=== PATIENT | female | born 1990 | race Caucasian/White ===

== ENCOUNTER 2020-12-22 15:03 | Observation (INO) | payer OTHER ==
[~2020-12-22] VITALS: Ht 175.3 cm; Wt 111.1 kg
[~2020-12-22 15:03] MED LIST: ASPIRIN81 MG PO; COLACE 100MG C100 MG PO; IBUPROFEN600 MG PO; LORTAB 5-325 M1 EACH PO; METFORMIN HCL500 MG PO; NORCO 5-325 TA1 EACH PO; PRENATABS FA T1 EACH PO; TRANDATE 100 M100 MG PO
[2020-12-22 16:16] LABS: HEMOGLOBIN 16.1 gm/dl (12.3-15.3); RED BLOOD COUNT 5.28 M/UL (4.00-5.10); WHITE BLOOD COUNT 7.2 K/UL (4.5-11.0)
[2020-12-22 16:35] LABS: BUN/CREATININE RATIO 13 (0-10)
[2020-12-22] MEDS ORDERED: ONE DAILY COMP1 EACH PO (23:19)
[2020-12-22] MEDS ORDERED: NEXIUM40 MG PO (23:20)
[2020-12-22] MEDS ORDERED: NORETHINDRONE0.35 MG PO (23:20)
[2020-12-23 06:50] LABS: WHITE BLOOD COUNT 6.4 K/UL (4.5-11.0)
[2020-12-23 06:52] LABS: HEMOGLOBIN 12.9 gm/dl (12.3-15.3); RED BLOOD COUNT 4.41 M/UL (4.00-5.10)
[2020-12-23 07:04] LABS: BUN/CREATININE RATIO 11 (0-10)
[2020-12-23] MEDS ORDERED: LISINOPRIL5 MG PO (09:06)
[2020-12-23] MEDS ORDERED: HUMALOG 10100 UNITS/ SC (09:06)
[2020-12-23] MEDS ORDERED: LANTUS INS100 UTS/M1 SC ×2 (09:06→09:23)
== END 2020-12-23 15:20 | disposition home or self-care (01) ==
LOC: ER1 15:03 → M/S 17:04 → CDU 17:04 → M/S 17:04
PROVIDERS: Physician Assistant Medical; ADMIT Internal Medicine
DX: E11.65 Type 2 diabetes mellitus with hyperglycemia (principal); I10 Essential (primary) hypertension; R74.01 Elevation of levels of liver transaminase levels; Z87.42 Personal history of other diseases of the female genital tract; Z87.39 Personal history of other diseases of the musculoskeletal system and connective tissue; Z86.32 Personal history of gestational diabetes; Z20.822 Contact with and (suspected) exposure to COVID-19; Z79.899 Other long term (current) drug therapy; Z83.3 Family history of diabetes mellitus
CPT/HCPCS: 36415; 36600; 80048; 80053; 81001; 82009; 82803; 82962; 83036; 83735; 84703; 85025; 96374; 96375; 99285; G0378; J2405; U0002